=== PATIENT | female | born 1995 | race Caucasian/White ===

== ENCOUNTER → 2021-02-22 14:23 | Outpatient (CLI) | payer OTHER, SELFPAY ==
--- NOTE | 2021-02-22 14:25 | DI.US.S_ITS ---
PROCEDURE: US OB <= 14 WEEKS FETUS INDICATIONS: DATES OUTSIDE/PRIOR DATING DATA: Last menstrual period (LMP): 12/23/20. LMP-based estimated date of delivery (ROSA): 09/29/21 First dating scan (date and location): 02/22/21. Estimated date of delivery (ROSA) from first dating scan: 10/24/21. TECHNIQUE: Real-time scanning was performed of the fetus and maternal pelvic organs, with image documentation. Endovaginal scanning was also performed to better visualize the fetus and maternal ovaries. COMPARISON: None. FINDINGS: Embryo: A presumed intrauterine gestational sac is seen measuring 4 mm, 5 weeks 1 day however no pole is confirmed. A presumed perigestational hemorrhage measuring 1.4 x 0.3 x 0.8 cm. Heart rate: Not applicable Measurement variability in dating: +/- 4 weeks by LMP, +/- 7 days by mean sac diameter (use before 6 weeks gestation if crown-rump length not able to be measured), +/- 5 days by crown-rump length (up to 8 weeks 6 days gestation), +/- 7 days by crown-rump length (up to 13 weeks 6 days gestation). Maternal organs: Ovaries unremarkable except for a presumed left-sided corpus luteum . IMPRESSION: Presumed intrauterine gestational sac however no pole identified. Differential includes early IUP, missed spontaneous however cannot exclude ectopic at this time. Recommend continued correlation with serial beta HCG values, and repeat pelvic ultrasound in 1 week. Maegan-gestational hematoma. Dictated by: Ran Tracy M.D. on 02/22/2021 at 14:58 Approved by: Ran Tracy M.D. on 02/22/2021 at 15:01
== END ==
PROVIDERS: Referring Provider Family Medicine; Visit Provider Family Medicine
DX: Z36.87 Encounter for antenatal screening for uncertain dates (principal)
CPT/HCPCS: 76801; 76817

== ENCOUNTER → 2021-02-28 16:46 | Outpatient (CLI) | payer OTHER, SELFPAY ==
[2021-02-28 18:50] LABS: HCG Quantitative /Beta subunit 6048.1 mIU/mL
== END ==
PROVIDERS: Referring Provider Family Medicine; Visit Provider Family Medicine
DX: Z34.81 Encounter for supervision of other normal pregnancy, first trimester (principal)
CPT/HCPCS: 36415; 84702

== ENCOUNTER → 2021-03-02 16:10 | Outpatient (CLI) | payer OTHER, SELFPAY ==
[2021-03-02 17:05] LABS: HCG Quantitative /Beta subunit 9253.4 mIU/mL
== END ==
PROVIDERS: Referring Provider Family Medicine; Visit Provider Family Medicine
DX: Z34.81 Encounter for supervision of other normal pregnancy, first trimester (principal)
CPT/HCPCS: 36415; 84702

== ENCOUNTER → 2021-03-08 14:16 | Outpatient (CLI) | payer OTHER, SELFPAY ==
--- NOTE | 2021-03-08 14:19 | DI.US.S_ITS ---
PROCEDURE: US OB <= 14 WEEKS FETUS INDICATIONS: DATES OUTSIDE/PRIOR DATING DATA: Last menstrual period (LMP): 12/23/2020 LMP-based estimated date of delivery (ROSA): 09/29/2021. First dating scan (date and location): 03/17/2021. Estimated date of delivery (ROSA) from first dating scan: 10/30/2021. TECHNIQUE: Real-time scanning was performed of the fetus and maternal pelvic organs, with image documentation. Endovaginal scanning was also performed to better visualize the fetus and maternal ovaries. COMPARISON: [facility], OB <= 14 WEEKS FETUS, 02/22/2021, 14:32. FINDINGS: Embryo: [place]-rump length measures 6 mm corresponding to 6 weeks 2 days. Delete Heart rate: 124 beats per minute. Measurement variability in dating: +/- 4 weeks by LMP, +/- 7 days by mean sac diameter (use before 6 weeks gestation if crown-rump length not able to be measured), +/- 5 days by crown-rump length (up to 8 weeks 6 days gestation), +/- 7 days by crown-rump length (up to 13 weeks 6 days gestation). Maternal organs: Ovaries within normal limits . IMPRESSION: 6 week 2 day single living IUP. Dictated by: Derrell Juares Yani Interpreted: Tucker Helms MD on 03/08/2021 at 15:39 Transcribed by: CHLOE on 03/08/2021 at 15:41 Approved by: Tucker Helms M.D. on 03/08/2021 at 17:42
== END ==
PROVIDERS: PCP Family Medicine; Referring Provider Family Medicine; Visit Provider Family Medicine
DX: Z34.81 Encounter for supervision of other normal pregnancy, first trimester (principal); Z3A.01 Less than 8 weeks gestation of pregnancy
CPT/HCPCS: 76801; 76817

== ENCOUNTER → 2021-03-30 11:31 | Outpatient (CLI) | payer OTHER, SELFPAY ==
[2021-03-30 12:38] LABS: Add Manual Diff / Slide Review NO; Basophils Absolute Auto 0 /uL (0-100); Basophils Percent Auto 0.3 % (0-2); Eosinophils Absolute Auto 200 /uL (0-450); Eosinophils Percent Auto 2.6 % (2-4); Hematocrit 37.9 % (36-46); Hemoglobin 12.8 g/dL (12.0-16.0); Lymphocytes Absolute Auto 1700 /uL (1100-4500); Lymphocytes Percent Auto 19.5 % (25-40); Mean Corpuscular HGB Conc 33.8 % (30-36); Mean Corpuscular Hemoglobin 30.4 PG (26-34); Monocytes Absolute Auto 400 /uL (0-900); Monocytes Percent Auto 4.3 % (3-14); Neutrophils Absolute Auto 6500 /uL (1500-7000); Neutrophils Percent Auto 73.3 % (50-75); Platelet Count 172 X10^3/uL (150-400); Red Blood Cell Count 4.21 X10^6/uL (4.0-5.2); Red Cell Distribution Width 12.5 % (11.6-14.8); White Blood Cell Count 8.9 X10^3/uL (4.5-11.0)
[2021-03-30 13:56] LABS: Appearance Urine UA CLEAR; Bilirubin Urine UA NEGATIVE (NEGATIVE); Color Urine UA YELLOW; Glucose Urine UA NEGATIVE (Negative); Ketones Urine UA 1+ (NEGATIVE); Leukocyte Esterase Urine UA NEGATIVE (NEGATIVE); Nitrite Urine UA NEGATIVE (Negative); Occult Blood Urine UA NEGATIVE (Negative); Protein Urine UA NEGATIVE (Negative); Specific Gravity Urine UA 1.025 (1.000-1.035); Urobilinogen Urine UA 0.2 E.U./dL (0.2)
[2021-03-30 14:00] LABS: pH Urine UA 6.5 (4.5-8.0)
[2021-03-30 16:11] LABS: Urine N gonorrhoeae NOT DETECTED
[2021-03-30 16:12] LABS: Urine Chlamydia NOT DETECTED
[2021-03-31 08:43] LABS: RPR Screen Non Reactive (Non Reactive)
[2021-03-31 10:09] LABS: Varicella IgG Antibody 360 index (Immune >165)
[2021-04-03 15:09] LABS: Hepatitis B Surface Antigen NEGATIVE s/c (NEGATIVE)
[2021-04-03 15:32] LABS: HIV 1 & 2 Ab/Ag 4th Gen Combo NEGATIVE (NEGATIVE); Hep C Virus Ab w/Reflex Quant NEGATIVE s/c (NEGATIVE)
[2021-04-04 16:14] LABS: Rubella Antibody IgG 44.9 IU/mL (>15)
== END ==
PROVIDERS: PCP Family Medicine; Referring Provider Family Medicine; Visit Provider Family Medicine
DX: Z34.90 Encounter for supervision of normal pregnancy, unspecified, unspecified trimester (principal); Z3A.09 9 weeks gestation of pregnancy
CPT/HCPCS: 36415; 80055; 81003; 86787; 86803; 86850; 86900; 86901; 87086; 87389; 87491; 87591

== ENCOUNTER → 2021-06-05 09:11 | Outpatient (CLI) | payer OTHER, SELFPAY ==
--- NOTE | 2021-06-05 09:12 | DI.US.S_ITS ---
PROCEDURE: US OB >= 14 WEEKS FETUS INDICATIONS: ANATOMY OUTSIDE/PRIOR DATING DATA: Last menstrual period (LMP): December 23, 2020. LMP-based estimated date of delivery (ROSA): September 29, 2021 . First dating scan (date and location): March 08, 2021 ([facility]) . Estimated date of delivery (ROSA) from first dating scan: October 30, 2021 . TECHNIQUE: Real-time scanning was performed of the fetus, with image documentation and biometric measurements. Endovaginal scanning: Not performed COMPARISON: None. FINDINGS: General: A single living intrauterine gestation is present. Presentation: Variable. Placenta: Placental position is posterior , with evidence of complete placenta previa.. Amniotic fluid index: 12.4 cm, normal range is 5-24 cm. (largest pocket measured 3.9 cm) heart rate: 149 beats per minute. Maternal cervical canal: 0.2 cm long. Normal lower limit is 2.5 cm. There is minimal fluid identified in the cervical canal. biometrics: Biparietal diameter: 4.6 cm (19 weeks and 5 days) Head circumference: 17.0 cm (19 weeks and 4 days) Abdominal circumference: 15.0 cm (20 weeks and 1 day) Femur length: 3.0 cm (19 weeks and 1 day). Estimated gestational age from initial scan: 19 weeks and 0 days Composite gestational age from present scan: 19 weeks and 5 days Estimated weight and percentile: 307 [address] the fetus within the 84th percentile based on gestational age. Measurement variability for biometric dating: +/- 7 days from 14 weeks to 15 weeks 6 days gestation, +/- 10 days from 16 weeks to 21 weeks 6 days gestation, +/- 2 weeks from 22 weeks to 27 weeks 6 days gestation, +/- 3 weeks for 28 weeks gestation or later. weight reference: 4500 g or EFW >90/95% is considered macrosomia or large for gestational age. EFW <10% is small for gestational age. EFW 5% or less is considered intra-uterine growth restriction. Anatomic survey: Neuro: Ventricles are non-dilated at less than 10 mm. Cisterna magna is normal at 3-11 mm. Right choroid plexus not well visualized. Cerebellum is normal in size and morphology. Nuchal skin fold: Not well visualized. Face: Nose and lips, facial profile are normal. Spine: No evidence for spina bifida. Heart: The four-chamber view and ventricular outflow tracts are not well visualized. Diaphragm: Diaphragm is intact. Stomach: Left-sided stomach is present. Kidneys: No hydronephrosis. Normal is less than 5 mm in 2nd trimester, less than 7 mm in 3rd trimester. Cord: 3-vessel cord has orthotopic insertion. Bladder: Normal in size. Extremities: All 4 extremities identified. IMPRESSION: Single living intrauterine gestation with estimated sonographic gestational age of approximately 19 weeks and 5 days. Expected interval growth has occurred. Estimated weight of approximately 307 [address] which [address] the fetus at the 84th percentile based on gestational age. There appears to be complete placenta previa. Recommend continued close clinical surveillance with follow-up imaging as needed. Limited visualization of the right choroid plexus, nuchal fold, four-chamber heart, and ventricular outflow tracts. Follow-up imaging recommended. Otherwise, unremarkable anatomic screening survey. Dictated by: Guy Briscoe M.D. on 06/05/2021 at 11:11 Approved by: Guy Briscoe M.D. on 06/05/2021 at 11:23
== END ==
PROVIDERS: PCP Family Medicine; Referring Provider Family Medicine; Visit Provider Family Medicine
DX: Z36.89 Encounter for other specified antenatal screening (principal); Z3A.19 19 weeks gestation of pregnancy
CPT/HCPCS: 76811; 76817

== ENCOUNTER → 2021-06-27 15:51 | Outpatient (CLI) | payer OTHER, SELFPAY ==
--- NOTE | 2021-06-27 15:52 | DI.US.S_ITS ---
PROCEDURE: US OB FOLLOW UP INDICATIONS: REMAINDER OF ANAYOMY, CHECK PLACENTA PREVIA OUTSIDE/PRIOR DATING DATA: Last menstrual period (LMP): 12/23/2020 LMP-based estimated date of delivery (ROSA): 09/29/2021. First dating scan (date and location): 03/08/2021. Estimated date of delivery (ROSA) from first dating scan: 10/30/2021. The calculations are made using the ultrasound ROSA of 10/30/2021 TECHNIQUE: Real-time scanning was performed of the fetus, with image documentation and biometric measurements. Endovaginal scanning: No COMPARISON: [facility], US, OB >= 14 WEEKS FETUS, 06/05/2021, 9:15. FINDINGS: General: A single living intrauterine gestation is present. Presentation: Oblique. Placenta: Placental position is posterior , with low lying placenta with the inferior edge of the placenta extending to nearly the internal cervical os level. Amniotic fluid index: 12.4 cm, normal range is 5-24 cm. heart rate: 149 beats per minute. Maternal cervical canal: 4.2 cm long. biometrics: Biparietal diameter: 19 weeks 5 days Head circumference: 19 weeks 4 days Abdominal circumference: 20 weeks 1 day Femur length: 19 weeks 1 day Clinically estimated gestational age: 19 weeks Composite gestational age from present scan: 19 weeks 5 days Estimated weight and percentile: 307 g, 84th percentile Normal appearance of the choroid plexus and nuchal fold. The four-chamber heart and cardiac outflow tracts are again suboptimally visualized. IMPRESSION: 1. Single living IUP redemonstrated 2. Four-chamber heart and cardiac outflow tracts again not well visualized. 3. Low-lying placenta. Continued follow-up recommended. We strive to produce accurate, complete, and clear reports of imaging services. To assist us in improving patient care, this report was composed using standard report templates and voice recognition software. Therefore, it may contain abnormal punctuation, insertions and/or omissions. Occasional wrong-word or sound-alike substitutions may occur. Though we review the report and make efforts to correct it, we do recommend that the report be read carefully in proper context to recognize any text inaccuracies. Dictated by: Derrell WORLEY Interpreted: Enoch Montano MD on 06/27/2021 at 17:05 Transcribed by: JOHNNY on 06/27/2021 at 17:09 Approved by: Kevin Holloway M.D. on 07/02/2021 at 11:50
== END ==
PROVIDERS: PCP Family Medicine; Referring Provider Family Medicine; Visit Provider Family Medicine
DX: O44.00 Complete placenta previa NOS or without hemorrhage, unspecified trimester (principal); Z3A.19 19 weeks gestation of pregnancy
CPT/HCPCS: 76816; 76817

== ENCOUNTER 2021-07-17 18:41 | Emergency (ER) | payer OTHER, SELFPAY ==
[2021-07-17 18:46] VITALS: BP 118/56; PULSE 120; RESP 24; TEMP 38.9; O2SAT 97; BMI 41.6
[2021-07-17 19:23] VITALS: TEMP 38.8
[2021-07-17] MEDS: SODIUM CHLORIDE 0.9% 1,000 ML 1000 ML IV ×2 (19:23→20:31)
[2021-07-17] MEDS: ACETAMINOPHEN 325 MG TABLET 650 MG PO (19:23)
[2021-07-17 19:25] LABS: Add Manual Diff / Slide Review NO; Basophils Absolute Auto 0 /uL (0-100); Basophils Percent Auto 0.2 % (0-2); Eosinophils Absolute Auto 100 /uL (0-450); Eosinophils Percent Auto 0.9 % (2-4); Hemoglobin 12.2 g/dL (12.0-16.0); Lymphocytes Absolute Auto 300 /uL (1100-4500); Lymphocytes Percent Auto 3.3 % (25-40); Mean Corpuscular HGB Conc 33.9 % (30-36); Mean Corpuscular Hemoglobin 29.8 PG (26-34); Monocytes Absolute Auto 400 /uL (0-900); Monocytes Percent Auto 4.5 % (3-14); Neutrophils Absolute Auto 8500 /uL (1500-7000); Neutrophils Percent Auto 91.1 % (50-75); Platelet Count 132 X10^3/uL (150-400); Red Blood Cell Count 4.09 X10^6/uL (4.0-5.2); Red Cell Distribution Width 13.2 % (11.6-14.8); White Blood Cell Count 9.3 X10^3/uL (4.5-11.0)
[2021-07-17 19:37] LABS: Lactate (Lactic Acid) 1.2 mmol/L (0.7-2.1)
[2021-07-17 19:38] LABS: Alanine Aminotransferase 27 IU/L (<35); Albumin 4.3 g/dL (3.5-5.0); Albumin Globulin Ratio 1.3 (1.0-2.8); Alkaline Phosphatase 61 U/L (38-126); Aspartate Aminotransferase 63 IU/L (14-36); BUN Creatinine Ratio 12.5 (6-22); Bilirubin Total 0.3 mg/dL (0.2-1.3); Blood Urea Nitrogen 6 mg/dL (7-17); Calcium 9.7 mg/dL (8.4-10.2); Carbon Dioxide 24 mmol/L (22-32); Chloride 103 mmol/L (98-107); Estimated Glomerular Filt Rate > 60.0 mL/min (>60); Globulin 3.4 g/dL (1.7-4.1); Glucose 98 mg/dL (70-100); HEMOLYSIS < 15 (0-50); Lipase 44 U/L (23-300); Potassium 3.6 mmol/L (3.4-5.1); Sodium 134 mmol/L (137-145); Total Protein 7.7 g/dL (6.3-8.2)
--- NOTE | 2021-07-17 19:42 | ED.FEVER ---
HPI - Fever General Chief Complaint: Fever Stated Complaint: 25 WKS FEVER 102 CHEST PAIN Time Seen by Provider: 07/17/21 19:07 Source: patient Mode of arrival: Ambulatory History of Present Illness HPI Narrative: The patient is a 25-year-old female currently 25 weeks with placenta previa presenting with fever and body aches that started today. She states that she has mild sore throat generalized body aches. No painful or frequent urination she has absolutely no abdominal pain no vaginal bleeding. She generally does not feel well. sHe has no back pain. She is vaccinated for COVID. Related Data Home Medications Medication Instructions Recorded Confirmed docusate sodium 100 mg capsule 100 mg PO DAILY 03/20/21 03/20/21 prenat.vits,lisa,ucg-vdub-guryx 1 tab PO DAILY 03/20/21 03/20/21 Previous Rx's Medication Instructions Recorded sertraline 50 mg tablet 50 mg PO DAILY #30 tab 03/30/21 Allergies Allergy/AdvReac Type Severity Reaction Status Date / Time lavender (Lavandula AdvReac Intermediate Hives Verified 07/17/21 18:51 angustifolia) No Known Allergies Allergy Uncoded 03/20/21 07:40 Review of Systems Review of Systems Narrative: GENERAL: See HPI HEENT: Denies sinus pain, ear pain, sore throat, difficulty swallowing, neck pain RESPIRATORY: Denies dyspnea, cough, wheezing, hemoptysis, sputum. CARDIOVASCULAR: Denies chest pain, palpitations, orthopnea, edema GASTROINTESTINAL: Denies nausea, vomiting, abdominal pain, diarrhea, constipation, melena. : Denies dysuria, frequency, incontinence, hematuria, urinary retention, flank pain. MUSCULOSKELETAL: Denies weakness, joint pain, or bony pain SKIN: No rash, no erythema, no pruritus NEUROLOGIC: Denies weakness, dizziness, headache, numbness, change in speech, confusion PSYCHIATRIC: No concerning psychosocial issues. 12 point review of systems is negative except for those stated above and HPI Patient History Medical History Anxiety Depression Finger fracture Obesity (spontaneous vaginal delivery) (~02/05/17) (spontaneous vaginal delivery) (~03/06/19) Family History Father History of prediabetes Altered cardiac tissue perfusion Mother Anemia Hemorrhoids Grandfather Family estrangement Grandmother Cancer Colon cancer Grandfather Congestive heart failure Arthritis Joint pain Grandmother Hypertension Brother Hiatal hernia Brother No problems noted. 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 ) current occupational exposures/hazards: Yes flor/uatsdin: Tenriism special flor needs: No Smoking Status: Never smoker second hand exposure: No alcohol intake: former (Pre- : rare social/on occasion ) substance use type: does not use Smoking Status: Never smoker alcohol intake frequency: 0-2 drinks per day Substance Use Type: does not use Exam Initial Vital Signs Initial Vital Signs: Vital Signs Temperature 102.0 F H 07/17/21 18:46 Pulse Rate 120 H 07/17/21 18:46 Respiratory Rate 24 07/17/21 18:46 Blood Pressure 118/56 L 07/17/21 18:46 Pulse Oximetry 97 07/17/21 18:46 GENERAL: Alert 25-year-old female appears to not feel well in no acute distress. HEENT: Head atraumatic,EOMI, pupils reactive, face symmetric, moist mucous membranes CARDIOVASCULAR: Regular rate and rhythm without murmurs, rubs or gallops. RESPIRATORY: Breath sounds equal bilaterally, no wheezes rales or rhonchi. ABDOMEN: Soft, nontender. Gravid. Normoactive bowel sounds all 4 quadrants. No guarding or rebound. : No CVA tenderness EXTREMITIES: Normal range of motion, no clubbing or edema. Neurovascularly intact NEUROLOGICAL: Alert and oriented x4.Normal gait and speech. SKIN: Warm, dry, no laceration, no petechiae, no rashes or lesions. Course Orders Ordered: ED Orders 07/17/21 18:53 COVID19 - ADMIT (AGENT SPA DESK swab/PCR) Stat Flu test [Influenza A & B (PCR)] Stat 07/17/21 18:59 RT Consult Eval and Treat NOW 07/17/21 19:11 Complete Blood Count AUTO DIFF Stat Comprehensive Metabolic Panel Stat Lactate (Lactic Acid) Stat Lipase Stat Procalcitonin Stat 07/17/21 19:50 Blood Culture Stat Discontinued Medications Acetaminophen (Acetaminophen 325 Mg Tablet) 650 mg PO NOW ONE Stop: 07/17/21 19:00 Last Admin: 07/17/21 19:23 Dose: 650 mg Documented by: MARICRUZ Sodium Chloride (Normal Saline 0.9%) 1,000 mls @ 1,000 mls/hr IV BOLUS ONE Stop: 07/17/21 19:58 Last Infusion: 07/17/21 20:30 Dose: 0 mls/hr Documented by: Admin: 07/17/21 19:23 Dose: 1,000 mls/hr Documented by: MARICRUZ Sodium Chloride (Normal Saline 0.9%) 1,000 mls @ 1,000 mls/hr IV BOLUS ONE Stop: 07/17/21 21:14 Last Infusion: 07/17/21 22:00 Dose: 0 mls/hr Documented by: Admin: 07/17/21 20:31 Dose: 1,000 mls/hr Documented by: RICHY Vital Signs Vital signs: Vital Signs - 8 hr 07/17/21 19:23 07/17/21 21:24 Temperature 102 F H 99.4 F Pulse Rate 110 H Respiratory Rate 20 Blood Pressure 124/59 L Pulse Oximetry 96 MDM - Fever Lab Data Result diagrams: 07/17/21 19:11 07/17/21 19:11 Labs: Lab Results 07/17/21 07/17/21 07/17/21 Range/Units 18:53 18:53 19:11 WBC 9.3 (4.5-11.0) X10^3/uL RBC 4.09 (4.0-5.2) X10^6/uL Hgb 12.2 (12.0-16.0) g/dL Hct 36.0 (36-46) % MCV 88.0 (80-100) fL MCH 29.8 (26-34) PG MCHC 33.9 (30-36) % RDW 13.2 (11.6-14.8) % Plt Count 132 L (150-400) X10^3/uL Neut % (Auto) 91.1 H (50-75) % Lymph % (Auto) 3.3 L (25-40) % [place] % (Auto) 4.5 (3-14) % Eos % (Auto) 0.9 L (2-4) % Baso % (Auto) 0.2 (0-2) % Neut # (Auto) 8500 H (2894-2476) /uL Lymph # (Auto) 300 L (6768-0168) /uL [place] # (Auto) 400 (0-900) /uL Eos # (Auto) 100 (0-450) /uL Baso # (Auto) 0 (0-100) /uL Sodium (137-145) mmol/L Potassium (3.4-5.1) mmol/L Chloride (98-107) mmol/L Carbon Dioxide (22-32) mmol/L BUN (7-17) mg/dL Creatinine (0.52-1.04) mg/dL Estimated GFR (>60) mL/min BUN/Creatinine Ratio (6-22) Glucose (70-100) mg/dL Lactate (0.7-2.1) mmol/L Calcium (8.4-10.2) mg/dL Total Bilirubin (0.2-1.3) mg/dL AST (14-36) IU/L ALT (<35) IU/L Alkaline Phosphatase (38-126) U/L Total Protein (6.3-8.2) g/dL Albumin (3.5-5.0) g/dL Globulin (1.7-4.1) g/dL Albumin/Globulin Ratio (1.0-2.8) Lipase (23-300) U/L Procalcitonin (<0.5) ng/mL SARS-CoV-2 (PCR) Positive H (Negative) Influenza A (RT-PCR) Flu a negative (NEGATIVE) Influenza B (RT-PCR) Flu b negative (NEGATIVE) 07/17/21 07/17/21 Range/Units 19:11 19:11 WBC (4.5-11.0) X10^3/uL RBC (4.0-5.2) X10^6/uL Hgb (12.0-16.0) g/dL Hct (36-46) % MCV (80-100) fL MCH (26-34) PG MCHC (30-36) % RDW (11.6-14.8) % Plt Count (150-400) X10^3/uL Neut % (Auto) (50-75) % Lymph % (Auto) (25-40) % [place] % (Auto) (3-14) % Eos % (Auto) (2-4) % Baso % (Auto) (0-2) % Neut # (Auto) (9949-0056) /uL Lymph # (Auto) (8756-5322) /uL [place] # (Auto) (0-900) /uL Eos # (Auto) (0-450) /uL Baso # (Auto) (0-100) /uL Sodium 134 L (137-145) mmol/L Potassium 3.6 (3.4-5.1) mmol/L Chloride 103 (98-107) mmol/L Carbon Dioxide 24 (22-32) mmol/L BUN 6 L (7-17) mg/dL Creatinine 0.48 L (0.52-1.04) mg/dL Estimated GFR > 60.0 (>60) mL/min BUN/Creatinine Ratio 12.5 (6-22) Glucose 98 (70-100) mg/dL Lactate 1.2 (0.7-2.1) mmol/L Calcium 9.7 (8.4-10.2) mg/dL Total Bilirubin 0.3 (0.2-1.3) mg/dL AST 63 H (14-36) IU/L ALT 27 (<35) IU/L Alkaline Phosphatase 61 (38-126) U/L Total Protein 7.7 (6.3-8.2) g/dL Albumin 4.3 (3.5-5.0) g/dL Globulin 3.4 (1.7-4.1) g/dL Albumin/Globulin Ratio 1.3 (1.0-2.8) Lipase 44 (23-300) U/L Procalcitonin 0.08 (<0.5) ng/mL SARS-CoV-2 (PCR) (Negative) Influenza A (RT-PCR) (NEGATIVE) Influenza B (RT-PCR) (NEGATIVE) Urine Dip Bedside Urine Glucose Negative Bedside Urine Bilirubin - Negative Bedside Urine Ketone - Negative Urine Specific [place] 1.015 Bedside Urine Occult Blood - Negative Bedside Urine pH 8 Bedside Urine Protein +/- 15 Bedside Urine Urobilinogen - Negative Bedside Urine Nitrite - Negative Bedside Urine Leukocytes - Negative Esterase MDM Narrative Medical decision making narrative: The patient is a 25-year-old female 25 weeks febrile tachycardic. She is given Tylenol and IV fluids. She is found to be COVID positive. She is feeling better after IV fluids. She has no abdominal pain or vaginal bleeding is unlikely to be any sort of complication with placenta previa. Discussed with her home care and when to return to the emergency department. Discharge Plan Departure Patient Disposition: Home Clinical Impression: COVID-19 affecting in second trimester Instructions: DI for COVID-19 (Suspected or Confirmed ) Activity Restrictions/Additional Instructions: *You have been diagnosed with COVID-19 * if you have not yet been vaccinated is still recommended and encouraged that you do so once your infection has passed *Follow up with your primary provider in 2-3 days or call [phone] AT HOME: -Monitor oxygen with pulse oximeter. If less than 90% for more than 1 hour please return to emergency department -I recommend lying on stomach for side rather than back, it has been proven to increase oxygen levels -Wash hands frequently. -Stay isolated at home please follow the isolation instructions below. -Increase fluid intake. -you may take Tylenol as directed if needed for pain or fever EMERGENCY warning signs for COVID-19: - Difficulty breathing or shortness of breath, oxygen less than 90% - Persistent pain or pressure in the chest - New confusion or inability to arouse - Bluish lips or face CDC Guidelines for home isolation: - Stay away from others - Limit contact with pets and animals: If you must care for a pet, wash your hands before and after interacting with them - Wear a mask while in public all places - Cover your mouth and nose with a tissue when you cough or sneeze. Dispose of tissues in a lined trash can and wash your hands immediately with soap and water for at least 20 seconds. If soap and water are not available, clean hands with alcohol-based hand sole inker that contains at least 60% alcohol. - Clean your hands often with soap and water for at least 20 seconds - Avoid touching your eyes, nose and mouth with unwashed hands - Do not share dishes, drinking glasses, cups, eating utensils, towels, or bedding with other people in your home. After using these items, wash them thoroughly with soap and water or put in the financial administrative assistant. - Clean high-touch surfaces in your isolation area (?sick room? and bathroom) every day; let a caregiver clean and disinfect high-touch surfaces in other areas of the home. Clean the area or item with soap and water or another detergent if it is dirty. Then, use a household disinfectant. Prescriptions: No Action sertraline 50 mg tablet 50 mg PO DAILY Qty: 30 1RF prenat.vits,lisa,utj-taog-jopup Tablet 1 tab PO DAILY 0RF docusate sodium 100 mg capsule 100 mg PO DAILY 0RF Referrals: Celina Frausto DO [Primary Care Provider] -
[2021-07-17 19:55] LABS: Procalcitonin 0.08 ng/mL (<0.5)
[2021-07-17 20:20] LABS: Influenza A - CEPHEID Flu A NEGATIVE (NEGATIVE); Influenza B - CEPHEID Flu B NEGATIVE (NEGATIVE)
[2021-07-17 20:21] LABS: COVID19 - ADMIT (NP swab/PCR) POSITIVE (Negative)
[2021-07-17 21:24] VITALS: BP 124/59; PULSE 110; RESP 20; TEMP 37.4; O2SAT 96
== END 2021-07-17 22:09 | disposition home or self-care (01) ==
PROVIDERS: Emergency Provider Emergency Medicine; PCP Family Medicine
DX: O98.512 Other viral diseases complicating pregnancy, second trimester (principal); U07.1 COVID-19; Z3A.25 25 weeks gestation of pregnancy
CPT/HCPCS: 36415; 80053; 81003; 83605; 83690; 84145; 85025; 87040; 87502; 87635; 96360; 99283; 99284; C9803

== ENCOUNTER → 2021-08-06 09:32 | Outpatient (CLI) | payer OTHER, SELFPAY ==
--- NOTE | 2021-08-06 09:32 | DI.US.S_ITS ---
PROCEDURE: US OB FOLLOW UP INDICATIONS: PLACENTAL COMPLETE PREVIA. FOLLOW UP HEART. OUTSIDE/PRIOR DATING DATA: Last menstrual period (LMP): 12/23/2020. LMP-based estimated date of delivery (ROSA): 09/29/2021. First dating scan (date and location): 03/08/2021 Estimated date of delivery (ROSA) from first dating scan: 10/30/2021. TECHNIQUE: Real-time scanning was performed of the fetus, with image documentation. Endovaginal scanning: Yes COMPARISON: [facility], OB FOLLOW UP, 06/27/2021, 16:11. FINDINGS: A single living intrauterine gestation is present. Presentation: Vertex. Placenta: Placental position is low lying, without previa. Placental edge is 10 mm from internal cervical os. Amniotic fluid index: 12.4 cm, normal range is 5-24 cm. heart rate: 149 beats per minute. Maternal cervical canal: 4.2 cm long. Normal lower limit is 2.5 cm. Estimated gestational age from initial scan: 27 weeks 6 days Survey of Anatomy currently includes normal four-chamber heart view., left and right ventricular outflow tracts, chest/diaphragm, stomach/abdomen, bilateral renal regions, and urinary bladder/pelvis. IMPRESSION: 1. Single living intrauterine gestation. 2. No evidence of placenta previa. 3. Limited normal survey of anatomy as above. Dictated by: Negrito Feliz M.D. on 08/06/2021 at 13:10 Approved by: Negrito Feliz M.D. on 08/06/2021 at 13:15
== END ==
PROVIDERS: PCP Family Medicine; Referring Provider Family Medicine; Visit Provider Family Medicine
DX: Z36.2 Encounter for other antenatal screening follow-up (principal); O44.02 Complete placenta previa NOS or without hemorrhage, second trimester; Z3A.27 27 weeks gestation of pregnancy
CPT/HCPCS: 76816; 76817

== ENCOUNTER → 2021-08-09 15:37 | Outpatient (CLI) | payer OTHER, MEDICAID, SELFPAY ==
[2021-08-09 17:42] LABS: Hematocrit 31.5 % (36-46); Hemoglobin 10.5 g/dL (12.0-16.0)
[2021-08-09 17:52] LABS: GTT (PREG) 1 Hour PP 50gm Dose 115 mg/dL (76-139)
== END ==
PROVIDERS: PCP Family Medicine; Referring Provider Family Medicine; Visit Provider Family Medicine
DX: Z34.92 Encounter for supervision of normal pregnancy, unspecified, second trimester (principal); Z3A.26 26 weeks gestation of pregnancy
CPT/HCPCS: 36415; 82950; 85014; 85018

== ENCOUNTER → 2021-08-31 12:06 | Outpatient (CLI) | payer OTHER, MEDICAID, SELFPAY ==
--- NOTE | 2021-08-31 12:09 | DI.US.S_ITS ---
PROCEDURE: US OB LIMITED INDICATIONS: check placenta location, growth OUTSIDE/PRIOR DATING DATA: Last menstrual period (LMP): 12/23/2020. LMP-based estimated date of delivery (ROSA): 09/29/2021 First dating scan (date and location): 03/08/2021 Estimated date of delivery (ROSA) from first dating scan: 10/30/2021 TECHNIQUE: Real-time scanning was performed of the fetus, with image documentation and biometric measurements. Endovaginal scanning: None COMPARISON: None. FINDINGS: General: A single living intrauterine gestation is present. Presentation: Cephalic. Placenta: Placental position is posterior , without previa. Amniotic fluid index: 16.3 cm, normal range is 5-24 cm. heart rate: 155 beats per minute. Maternal cervical canal: 4 cm long. Normal lower limit is 2.5 cm. biometrics: Biparietal diameter: 8.5 cm, 34 week 0 day Head circumference: 30.3 cm, 33 week 5 day Abdominal circumference: 27.5 cm, 31 week 4 day Femur length: 6 cm, 31 week 2 day Clinically estimated gestational age: 31 week 3 day Composite gestational age from present scan: 32 week 5 day Estimated weight and percentile: 1861 g, 54th percentile Other: Not applicable. IMPRESSION: Single live intrauterine consistent with 32 week 5 day gestation by current ultrasound Approved by: Pete Nicole M.D. on 08/31/2021 at 13:10
== END ==
PROVIDERS: PCP Family Medicine; Referring Provider Family Medicine; Visit Provider Family Medicine
DX: Z36.89 Encounter for other specified antenatal screening (principal); Z3A.32 32 weeks gestation of pregnancy
CPT/HCPCS: 76815

== ENCOUNTER 2021-10-01 14:48 | Outpatient (CLI) | payer OTHER, MEDICAID, SELFPAY ==
--- NOTE | 2021-10-01 15:30 | P.TNLD_ITS ---
Visit Information Visit Information Date of evaluation: 10/01/21 Primary OB Provider: Celina Frausto Reason for Evaluation: Yes non-stress test non-stress test reason: hypertension/pre-eclampsia Comments/Additional reasons for admission: 25-year-old at 35 weeks and 6 days with concern for elevated blood pressures at home. She has also been having some edema. Denies headaches, vision changes or right upper quadrant pain. Denies contractions, leaking or bleeding and reports good movement. Vital Signs Vital Signs: Serial blood pressuress 130s/60s pulse 100 PFSH Medical History Anxiety Depression Finger fracture Obesity (spontaneous vaginal delivery) (~02/05/17) (spontaneous vaginal delivery) (~03/06/19) Family History Father History of prediabetes Altered cardiac tissue perfusion Mother Anemia Hemorrhoids Grandfather Family estrangement Grandmother Cancer Colon cancer Grandfather Congestive heart failure Arthritis Joint pain Grandmother Hypertension Brother Hiatal hernia Brother No problems noted. 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[employer] ) current occupational exposures/hazards: Yes flor/confucianism: Tenriism special flor needs: No Smoking Status: Never smoker second hand exposure: No alcohol intake: former (Pre- : rare social/on occasion ) substance use type: does not use Evaluation Evaluation Baseline heart rate: 140 Variability: Moderate (11-25) monitor accelerations: Present Monitor Decelerations: Absent Category of Tracing: Reactive Diagnosis, Plan/Disposition Final Diagnosis (1) 35 weeks gestation of : Status: Acute Plan/Disposition Plan: 25-year-old at 35 weeks and 6 days gestation with concern for hypertension at home. All plan pressures in the center were within normal limits and she is without symptoms of preeclampsia. NST reactive. Follow-up as scheduled in clinic this week or sooner if needed. OB Disposition: home
== END 2021-10-01 15:35 | disposition home or self-care (01) ==
LOC: OB 10-03 16:38
PROVIDERS: PCP Internal Medicine; Referring Provider Family Medicine; Visit Provider Family Medicine
DX: O26.893 Other specified pregnancy related conditions, third trimester (principal); R03.0 Elevated blood-pressure reading, without diagnosis of hypertension; Z3A.35 35 weeks gestation of pregnancy
CPT/HCPCS: 59025; G0378; G0379

== ENCOUNTER → 2021-10-09 13:30 | Outpatient (CLI) | payer OTHER, MEDICAID, SELFPAY ==
[2021-10-10 12:40] LABS: Strep Grp B PCR POS for Grp B Strep
== END ==
PROVIDERS: PCP Internal Medicine; Visit Provider Family Medicine
DX: Z34.93 Encounter for supervision of normal pregnancy, unspecified, third trimester (principal); Z3A.37 37 weeks gestation of pregnancy
CPT/HCPCS: 87653

== ENCOUNTER 2021-10-25 13:05 | Inpatient (IN) | payer OTHER, MEDICAID, SELFPAY ==
--- NOTE | 2021-10-25 13:11 | P.HPOB_ITS ---
OB HPI Date/Time Date of admission: 10/25/21 Date Patient Seen: 10/25/21 Time Patient Seen: 13:15 History of Present Condition Chief complaint: induction ROSA Calculator Estimated Delivery Date Method Current WG Current Estimate 10/30/21 Ultrasound #1 39w 2d Other Estimates 09/29/21 LMP (Certain) 43w 5d Estimated Gestational Age (weeks): 39.2 : 3 Para: 2 Narrative: 26-year-old at 39 weeks and 2 days gestation presenting for induction due to history of rapid labor, distance from the hospital in GBS positivity. was complicated by placenta previa initially which resolved by 32 weeks. She also had a mild case of COVID despite vaccination at the end of the second trimester without complications. She took sertraline throughout her for anxiety. care: good care, initiated at week # (9), number of visits (10) and pounds weight gain (46) Dating criteria OB: based on 1st trimester US only Ultrasounds: abnormal US findings (Placenta previa on 20 week ultrasound, resolved by 32 weeks) Obstetrical complications: none Medical complications OB: none Indications Indication for induction OB: other (Distance from hospital, GBS positive, history of rapid labor) Preadmission Labs Last OB Lab Results: Blood Type O Positive 10/25/21 14:30 10/25/21 Antibody Screen Negative 10/25/21 14:30 10/25/21 Hematocrit 34.5 % (36-46) L 10/25/21 14:30 10/25/21 Hemoglobin 11.9 g/dL (12.0-16.0) L 10/25/21 14:30 10/25/21 Hepatitis B Surface Antigen Negative s/c (NEGATIVE) 03/30/21 12:07 03/30/21 Hepatitis C Antibody Negative s/c (NEGATIVE) 03/30/21 12:07 03/30/21 Rubella Antibody 44.9 IU/mL (>15) 03/30/21 12:07 03/30/21 Varicella-Zoster IgG Antibody 360 index (Immune >165) 03/30/21 12:07 03/30/21 Glucose 1 Hour 115 mg/dL (76-139) 08/09/21 16:51 08/09/21 Group B Streptococcus (PCR) Pos for grp b strep H 10/09/21 13:30 10/09/21 -: Urine: negative External Labs -: Urine: negative Prior (ies) Past Pregnancies Del. Date GA/Weeks Labor Lgth Wt Sex Route Outcome Anesthesia Place Delv Breastfeed Preg Comp Name 02/05/17 39.3 15 8 lb 9 oz Male vaginal live - full term ep idural [place] 1 month none [place] 03/06/19 35.3 5 7 lb Female vaginal live - epidural [place] 2 months none [place] Delivery Date: 02/05/17 Last Updated by: Kelly Ferreira R.N. *Jaundice : 5 day stay for Rx. *Struggled with PPD - usual symptoms but worse. Meds changed and support. Delivery Date: 03/06/19 Last Updated by: Kelly Ferreira R.N. *Jaundiced : NICU X 7 days. *Patient reports that she bled badly PP and was give oral and rectal meds. *PPD again. Evaluation Evaluation Baseline heart rate: 140 Variability: Moderate (11-25) monitor accelerations: Present Monitor Decelerations: Absent Contraction Frequency (minutes): 4 Uterine Contraction Intensity: Mild Category of Tracing: Reactive Status: Category l Dilation (cm): 4 Effacement (%): 50 Dilation: 3-4 cm Effacement: 40-50% station: -2 Position of cervix: mid Consistency: soft [place]ham score: 7 PFSH Medical History Anxiety Depression Finger fracture Obesity (spontaneous vaginal delivery) (~02/05/17) (spontaneous vaginal delivery) (~03/06/19) Family History Father History of prediabetes Altered cardiac tissue perfusion Mother Anemia Hemorrhoids Grandfather Family estrangement Grandmother Cancer Colon cancer Grandfather Congestive heart failure Arthritis Joint pain Grandmother Hypertension Brother Hiatal hernia Brother No problems noted. 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 ) current occupational exposures/hazards: Yes flor/yazidi: Scientology special flor needs: No Smoking Status: Never smoker second hand exposure: No alcohol intake: former (Pre- : rare social/on occasion ) substance use type: does not use Meds Home Medications and Allergies Home Medications Medication Instructions Recorded Confirmed Type docusate sodium 100 mg capsule 100 mg PO DAILY 03/20/21 09/07/21 History prenat.vits,lisa,qhe-lima-sblla 1 tab PO DAILY 03/20/21 09/07/21 History sertraline 50 mg tablet 50 mg PO DAILY #30 tab 03/30/21 09/07/21 Rx Double Electric Breast Pump and #1 ea 08/30/21 09/07/21 Rx supplies Allergies Allergy/AdvReac Type Severity Reaction Status Date / Time lavender (Lavandula AdvReac Intermediate Hives Verified 07/17/21 18:51 angustifolia) No Known Allergies Allergy Uncoded 03/20/21 07:40 OB Exam Narrative Exam Narrative: Blood pressure 125/69 heart rate 95 HENMT Head: normal to inspection Mouth: oral mucosae normal Eyes General: appearance normal, both eyes and all related structures Resp Effort & Inspection: normal respiratory effort Auscultation: clear to auscultation bilaterally Cardio Rate: regular rate Rhythm: regular rhythm Heart Sounds: S1 normal and S2 normal Extremities Lower extremity: Yes normal to inspection Presentation: vertex Estimated Weight (lbs): 8 Objective Labs Result Diagrams: 10/25/21 14:30 Assessment and Plan Assessment and Plan Assessment and Plan narrative: 26-year-old at 39 weeks and 2 days here for induction due to distance from hospital, GBS positivity and history of fast labor. Plan Pitocin per protocol Penicillin for GBS prophylaxis AROM after adequate antibiotics Epidural upon request Anticipate
[2021-10-25 13:54] LABS: Add Manual Diff / Slide Review NO; Basophils Absolute Auto 100 /uL (0-100); Basophils Percent Auto 0.8 % (0-2); Eosinophils Absolute Auto 200 /uL (0-450); Eosinophils Percent Auto 2.2 % (2-4); Hematocrit 34.5 % (36-46); Hemoglobin 11.9 g/dL (12.0-16.0); Lymphocytes Absolute Auto 1400 /uL (1100-4500); Lymphocytes Percent Auto 12.5 % (25-40); Mean Corpuscular HGB Conc 34.5 % (30-36); Mean Corpuscular Hemoglobin 30.1 PG (26-34); Mean Corpuscular Volume 87.4 fL (80-100); Monocytes Absolute Auto 600 /uL (0-900); Monocytes Percent Auto 5.5 % (3-14); Neutrophils Absolute Auto 8900 /uL (1500-7000); Platelet Count 147 X10^3/uL (150-400); Red Blood Cell Count 3.95 X10^6/uL (4.0-5.2); White Blood Cell Count 11.3 X10^3/uL (4.5-11.0)
[2021-10-25] MEDS: PENICILLIN G POTASSIUM 5,000,000 UNIT in DEXTROSE 5% IN WATER 250 ML IV (13:59)
[2021-10-25] MEDS: LACTATED RINGERS 1,000 ML 100 ML IV (14:00)
[2021-10-25 14:09] LABS: COVID19 -Nasal RAPID Negative (Negative)
[2021-10-25] MEDS: OXYTOCIN PREMIX 30 UNIT/500 ML PLAST..BAG IV (14:26)
[2021-10-25] MEDS: PENICILLIN G POTASSIUM 3,000,000 UNIT/50 ML FROZ.PIGGY 100 UNIT IV (17:42)
--- NOTE | 2021-10-25 18:22 | PM.OBPNLAB ---
Date/Time Date Patient Seen: 10/25/21 Time Patient Seen: 18:15 Pain Control Pain control: tolerating well Pelvic Exam Dilation (cm): 6 Effacement (%): 75 station: -2 Amniotic membrane status: Ruptured (AROM clear fluid) Contractions Pitocin rate (mU/min): 16 Contraction frequency (min): 2 Contraction intensity: Mild Status status: Category l Heart Rate Baseline: 140 Monitor Accelerations: Present Monitor Decelerations: Absent Monitor Variability: Moderate Assessment and Plan Assessment: active labor Plan: continuous present management Comments: 26 year old at 39+2 s/p AROM with clear fluid. She has now completed 2 doses of PCN for GBS prophylasix. Epidural upon request. Anticipate .
[2021-10-25] MEDS: ONDANSETRON 4 MG/2 ML INJ IV (19:45)
--- NOTE | 2021-10-25 21:29 | PM.OBPRVD ---
Labor & Delivery Delivery date: 10/25/21 Induction method: per pitocin protocol Delivery augmentation: rupture of membranes Delivery monitor: external FHT Route of delivery: L&D Laceration Description: None Estimated blood loss (mL): 300 Anesthesia Type: Epidural Narrative: BRIEF HISTORY: Patient is a 26-year-old at 39+2 weeks who gave on 10/25/21 at 2117. ROSA: 10/30/21 Hospital problems: 39 weeks of Spontaneous vaginal delivery STAGE I: Labor Patient came in for elective induction due to GBS positivity, distance from hospital and history of rapid labor. She received Pitocin per protocol and progressed well after artificial rupture of membranes with clear fluid. She went on to receive an epidural with excellent pain control. She was complete at 2105. heart tones were category 1 primarily throughout stage I and occasionally category 2 with mild variable non recurrent decelerations. Stage I duration 7 hours and 58 minutes. STAGE II: Delivery Patient was complete and pushed over four contractions to deliver a vigorous female at 9:17 p.m.. was vertex and TAMIA. She was immediately placed on mother's abdomen. Cord was clamped and cut after 1 minute delay. Apgars were 9 and 9. No resuscitation of the required. Stage II duration 12 minutes. STAGE III: Placenta/Cord Placenta delivered at 9:21 p.m. after gentle traction on cord. Placenta appeared intact with a three-vessel cord. Pitocin bolus given after delivery of placenta. There were no lacerations. Fundus was firm below umbilicus after delivery. Stage III duration 4 minutes. EBL: 300 mL. Needle and sponge counts were correct. The vagina was inspected and no items were left in situ. Patient was doing well with Shaw, her and at bedside. [place] Baby 1: Infant gender: Female Presentation: vertex Position: Right Occiput Anterior Placenta delivery description: Spontaneous Cord Vessel Description: 3 Vessels score (1 min): 9 score (5 min): 9 weight: 8 lb 6.429 oz Plan for aftercare: Routine care
[2021-10-25] MEDS: IBUPROFEN 600 MG TABLET PO (23:41)
[2021-10-25] MEDS: ACETAMINOPHEN 325 MG TABLET 650 MG PO (23:41)
[2021-10-26] MEDS: IBUPROFEN 600 MG TABLET PO ×2 (05:30→12:42)
[2021-10-26] MEDS: ACETAMINOPHEN 325 MG TABLET 650 MG PO ×3 (05:30→21:21)
--- NOTE | 2021-10-26 08:20 | P.PNOB_ITS ---
Subjective - OB Subjective Patient comments: no complaints, pain well controlled and tolerating diet baby status: doing well and nursing well feeding status: exclusively breast feeding Date Patient Seen: 10/26/21 Time Patient Seen: 08:00 Interval history: Denies complaints this morning. She is ambulating, voiding and tolerating a diet. Vaginal bleeding as expected. Pain controlled with Tylenol and ibuprofen. Exam Vital Signs (past 8 hours): Temperature 97.9? blood pressure 112/77 heart rate 78 respirations 16 Narrative Exam Narrative: General: Awake and alert, no acute distress. HEENT: NCAT, EOMI, moist oral mucosa CV: Regular rate and rhythm, no murmurs, rubs or gallops Lungs: CTAB, no wheezes, rales, or rhonchi Abdomen: Soft, nontender; bowel tones active; uterus firm 1 cm below umbilicus Extremities: Warm, no edema Objective Labs Result Diagrams: 10/25/21 14:30 Labs: Laboratory Results - last 24 hr 10/25/21 10/25/21 10/25/21 14:30 14:30 14:30 WBC 11.3 H RBC 3.95 L Hgb 11.9 L Hct 34.5 L MCV 87.4 MCH 30.1 MCHC 34.5 RDW 15.0 H Plt Count 147 L Neut % (Auto) 79.0 H Lymph % (Auto) 12.5 L [place] % (Auto) 5.5 Eos % (Auto) 2.2 Baso % (Auto) 0.8 Neut # (Auto) 8900 H Lymph # (Auto) 1400 [place] # (Auto) 600 Eos # (Auto) 200 Baso # (Auto) 100 SARS-CoV-2 (PCR) Negative Blood Type O Positive Antibody Screen Negative Assessment & Plan Assessment and Plan (1) Spontaneous vaginal delivery: Status: Acute (2) 39 weeks gestation of : Status: Acute Plan day: 1 plan OB: routine care Comments: 26-year-old G3 now P3 after uncomplicated spontaneous vaginal delivery last night. Continue care. Anticipate discharge home tomorrow. Time Spent With Patient Time: Total time spent is greater than 50% in coordination of care (as documented) at patient's floor/unit and/or counseling patient: Time with patient: less than 15 minutes
[2021-10-26] MEDS: DOCUSATE 100 MG CAPSULE PO (09:02)
[2021-10-26] MEDS: PRENATAL VIT,CALC/IRON/FOLIC 1 TABLET 1 TAB PO (09:02)
[2021-10-26] MEDS: LANOLIN OINT 7 GM 1 APPLIC TOP (09:17)
[2021-10-26 12:42] VITALS: TEMP 36.7
[2021-10-26 12:44] VITALS: TEMP 36.7
[2021-10-27] MEDS: ACETAMINOPHEN 325 MG TABLET 650 MG PO (07:13)
[2021-10-27] MEDS: IBUPROFEN 600 MG TABLET PO (07:14)
--- NOTE | 2021-10-27 08:10 | P.DS_ITS ---
Discharge Providers Provider Date of admission: 10/25/21 13:05 Discharge Date: 10/27/21 Primary care physician: Jose R Solano MD Consults: 10/26/21 21:34 Consult to Mail Distribution Clerk Routine Comment: Discharge provider: Celina Frausto DO Summary Hospital Course Date Patient Seen: 10/27/21 Diagnoses: 39 weeks of Spontaneous vaginal delivery GBS positive Epidural analgesia Hospital Course: 26-year-old G3 now P3 after uncomplicated spontaneous vaginal delivery at 39 weeks and 2 days. She came in for elective induction due to distance from the hospital, history of rapid labor and GBS positivity. She received Pitocin per protocol as well as 2 doses of penicillin prior to delivery. She received an epidural and went on to deliver a vigorous female infant. There were no lacerations. course has been uncomplicated. She is ambulating, voiding and passing flatus. Vaginal bleeding is moderate in decreasing. Pain controlled with Tylenol and ibuprofen. She is working on though infant may have a tongue tie. She is pumping and comfortable with the feeding plan going home. Advised patient to call for fevers, severe pain or bleeding through more than a pad an hour. Follow-up in clinic in 6 weeks. Peripartum Data Delivery Method: Natural Vaginal Laceration Description: None complications: none [place] 1: Gender: Female Disposition of : home Discharge Diagnosis (1) Spontaneous vaginal delivery: Status: Acute (2) 39 weeks gestation of : Status: Acute Time Spent with Patient Time attestation: Total time spent providing and/or coordinating discharge services: Time spent: Less than 30 minutes Objective Labs Result Diagrams: 10/25/21 14:30 Exam Vital Signs (past 8 hours): Temperature 97.7? blood pressure 115/81 heart rate 91 respirations 16 Narrative Exam Narrative: General: Sitting up eating breakfast, no distress. HEENT: NCAT, EOMI, moist oral mucosa CV: Regular rate and rhythm, no murmurs, rubs or gallops Lungs: CTAB, no wheezes, rales, or rhonchi Extremities: Warm, no edema Discharge Plan Discharge Plan Patient Disposition: Home Discharge orders & Medications Prescriptions: New docusate sodium 100 mg Capsule 100 mg PO DAILY Qty: 30 0RF ibuprofen 600 mg Tablet 600 mg PO Q6HR PRN (Reason: Pain, Mild (1-3)) Qty: 30 0RF Continued sertraline 50 mg tablet 50 mg PO DAILY Qty: 30 1RF (DME) Double Electric Breast Pump and supplies See Rx Instructions .ROUTE .MEDSUPPLY Qty: 1 0RF Rx Instructions: Use daily as directed prenat.vits,lisa,[id number] Tablet 1 tab PO DAILY 0RF docusate sodium 100 mg capsule 100 mg PO DAILY 0RF Follow up/Referrals: Jose R Solano MD [Primary Care Provider] - Celina Frausto DO [Physician] - 12/04/21 11:30 am Diet/Activity/Treatments Diet: Diet as Tolerated Skin/Wound/Dressing Care Report to your healthcare provider any signs of infection, such as:: chills, fever, night sweats, increased pain, unusual drainage and unusual redness Visit Report/Discharge Packet Visit Report Forms: Patient Portal/API, Stroke Signs & Symptoms Discharge Data Primary Care Provider: Jose R Solano
[2021-10-27 08:51] VITALS: BP 115/81; PULSE 91; RESP 16; TEMP 36.9
== END 2021-10-27 10:58 | disposition home or self-care (01) | DRG 560 ==
PROVIDERS: Admitting Provider Family Medicine; PCP Internal Medicine; Referring Provider Family Medicine; Visit Provider Family Medicine
DX: O99.824 Streptococcus B carrier state complicating childbirth (principal); Z3A.39 39 weeks gestation of pregnancy; Z37.0 Single live birth; O76 Abnormality in fetal heart rate and rhythm complicating labor and delivery; O99.344 Other mental disorders complicating childbirth; F41.9 Anxiety disorder, unspecified; Z20.822 Contact with and (suspected) exposure to COVID-19
CPT/HCPCS: 01967; 59050; 59409; 59410; 85025; 86850; 86900; 86901; 87635; C9803; G0379; J2405; J2540; J2590

== ENCOUNTER → 2022-02-28 15:05 | Outpatient (CLI) | payer OTHER, MEDICAID, SELFPAY ==
[2022-03-01 11:42] LABS: Varicella IgG Antibody 363 index (Immune >165)
== END ==
PROVIDERS: PCP Family Medicine; Referring Provider Family Medicine; Visit Provider Family Medicine
DX: Z01.84 Encounter for antibody response examination (principal)
CPT/HCPCS: 36415; 86787

== ENCOUNTER 2023-02-26 15:22 | Emergency (ER) | payer OTHER, SELFPAY ==
[2023-02-26 15:34] VITALS: BP 140/79; PULSE 117; RESP 16; TEMP 38.5; O2SAT 100; BMI 34.9
[2023-02-26] MEDS: IBUPROFEN 400 MG TABLET 800 MG PO (15:49)
[2023-02-26] MEDS: ACETAMINOPHEN 325 MG TABLET 975 MG PO (15:49)
--- NOTE | 2023-02-26 15:52 | ED_ITS ---
HPI - URI/Sore Throat <TAMIR Varela - Last Filed: 02/26/23 16:16> General Chief Complaint: Upper Respiratory Symptoms Stated Complaint: fever, sore throat, congestion, doesn't feel well Time Seen by Provider: 02/26/23 15:46 Source: patient Mode of arrival: Ambulatory History of Present Illness HPI Narrative: This is a 27-year-old female presents to the emergency department complaining of rhinorrhea, sore throat, ear pain and fever which started yesterday. She is vaccinated for COVID, states it the walk-in clinic tested her for strep yesterday and it was negative. She last had ibuprofen at 08:00 o'clock this morning. States that she has a fever right now and feels bad but has not been vomiting, denies nausea, denies dysuria, denies abdominal pain or other symptoms other than her upper respiratory system. She does not have a cough. Related Data Home Medications Medication Instructions Recorded Confirmed prenat.vits,lisa,[id number] 1 tab PO DAILY 03/20/21 10/26/21 Previous Rx's Medication Instructions Recorded Double Electric Breast Pump and #1 ea 08/30/21 supplies ibuprofen 600 mg tablet 600 mg PO Q6HR PRN Pain, Mild 10/27/21 (1-3) #30 tabs sertraline 50 mg tablet See Rx Instructions .Route 12/24/22 .COMPLEX #45 tabs cetirizine 10 mg tablet 10 mg PO BEDTIME PRN congestion 02/26/23 #30 tabs Allergies Allergy/AdvReac Type Severity Reaction Status Date / Time lavender (Lavandula AdvReac Intermediate Hives Verified 05/16/22 16:21 angustifolia) No Known Allergies Allergy Uncoded 05/16/22 16:21 Review of Systems <TAMIR Varela - Last Filed: 02/26/23 16:16> Review of Systems ROS Unobtainable: All systems reviewed & are unremarkable except as noted in HPI and below Patient History <TAMIR Varela - Last Filed: 02/26/23 16:16> Medical History Anxiety COVID-19 affecting in second trimester Depression Finger fracture Obesity Spontaneous vaginal delivery (~10/25/21) (spontaneous vaginal delivery) (~02/05/17) (spontaneous vaginal delivery) (~03/06/19) Family History Father History of prediabetes Altered cardiac tissue perfusion Mother Anemia Hemorrhoids Grandfather Family estrangement Grandmother Cancer Colon cancer Grandfather Congestive heart failure Arthritis Joint pain Grandmother Hypertension Brother Hiatal hernia Brother No problems noted. 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 ) current occupational exposures/hazards: Yes flor/restoration: Rastafari special flor needs: No Smoking Status: Never smoker second hand exposure: No alcohol intake: former (Pre- : rare social/on occasion ) substance use type: does not use Smoking Status: Never smoker alcohol intake frequency: 0-2 drinks per day Substance Use Type: does not use Exam <TAMIR Varela - Last Filed: 02/26/23 16:16> Narrative Exam Narrative: HEENT: Congestion, rhinorrhea, posterior pharynx with mild exudate, no tonsillar adenopathy, right TM is erythematous, bulging and suppurative, left TM is bulging without erythema, normal landmarks, no anterior cervical lymphadenopathy Initial Vital Signs Initial Vital Signs: Vital Signs Temperature 101.3 F H 02/26/23 15:34 Pulse Rate 117 H 02/26/23 15:34 Respiratory Rate 16 02/26/23 15:34 Blood Pressure 140/79 02/26/23 15:34 Pulse Oximetry 100 02/26/23 15:34 Oxygen Delivery Method Room Air 02/26/23 15:34 <Jose R Henson MD - Last Filed: 03/24/23 21:41> Initial Vital Signs Initial Vital Signs: Vital Signs Temperature 101.3 F H 02/26/23 15:34 Pulse Rate 117 H 02/26/23 15:34 Respiratory Rate 16 02/26/23 15:34 Blood Pressure 140/79 02/26/23 15:34 Pulse Oximetry 100 02/26/23 15:34 Oxygen Delivery Method Room Air 02/26/23 15:34 Course <TAMIR Varela - Last Filed: 02/26/23 16:16> Orders Ordered: Discontinued Medications Acetaminophen (Acetaminophen 325 Mg Tablet) 975 mg PO NOW ONE Stop: 02/26/23 15:45 Last Admin: 02/26/23 15:49 Dose: 975 mg Documented By: JOSE ARMANDO Ibuprofen (Ibuprofen 400 Mg Tablet) 800 mg PO NOW ONE Stop: 02/26/23 15:45 Last Admin: 02/26/23 15:49 Dose: 800 mg Documented By: JOSE ARMANDO Vital Signs Vital signs: Vital Signs - 8 hr 02/26/23 15:34 02/26/23 15:53 Temperature 101.3 F H Pulse Rate 117 H 110 H Respiratory Rate 16 20 Blood Pressure 140/79 Pulse Oximetry 100 99 Oxygen Delivery Method Room Air Room Air <Jose R Henson MD - Last Filed: 03/24/23 21:41> Orders Ordered: Discontinued Medications Acetaminophen (Acetaminophen 325 Mg Tablet) 975 mg PO NOW ONE Stop: 02/26/23 15:45 Last Admin: 02/26/23 15:49 Dose: 975 mg Documented By: JOSE ARMANDO Ibuprofen (Ibuprofen 400 Mg Tablet) 800 mg PO NOW ONE Stop: 02/26/23 15:45 Last Admin: 02/26/23 15:49 Dose: 800 mg Documented By: JOSE ARMANDO Vital Signs Vital signs: Vital Signs - 8 hr 02/26/23 15:34 02/26/23 15:53 Temperature 101.3 F H Pulse Rate 117 H 110 H Respiratory Rate 16 20 Blood Pressure 140/79 Pulse Oximetry 100 99 Oxygen Delivery Method Room Air Room Air MDM - URI/Sore Throat <TAMIR Varela - Last Filed: 02/26/23 16:16> Lab Data Labs: Lab Results 02/26/23 02/26/23 Range/Units 15:45 15:45 Chlamy pneumoniae PCR Not detected (Not Detect) Adenovirus (PCR) Detected H (Not Detect) B. pertussis DNA (PCR) Not detected (Not Detecte) B.parapertussis DNA PCR Not detected (Not Detecte) Coronavirus OC43 (PCR) Not detected (Not Detect) Coronavirus HKU1 (PCR) Not detected (Not Detect) Coronavirus 229E (PCR) Not detected (Not Detect) SARS-CoV-2 (PCR) Not detected (Not Detecte) Coronavirus NL63 (PCR) Not detected (Not Detect) Human Metapneumovir PCR Not detected (Not Detect) Influenza Type A (PCR) Not detected (Not Detect) Influenza Type B (PCR) Not detected (Not Detect) M. pneumoniae (PCR) Not detected (Not Detect) Parainfluenza 1 (PCR) Not detected (Not Detect) Parainfluenza 2 (PCR) Not detected (Not Detect) Parainfluenza 3 (PCR) Not detected (Not Detect) Parainfluenza 4 (PCR) Not detected (Not Detect) RSV (PCR) Not detected (Not Detect) Entero/Rhino (PCR) Not detected (Not Detect) Group A Strep (PCR) Positive H (Negative) MDM Narrative Medical decision making narrative: Chief Complaint: Throat pain, ear pain, congestion Multiple etiologies for patient's complaint considered including, but not limited to: I have independently reviewed the patient's vital signs and nursing notes as well as prior records if available. Plan: Rapid strep, COVID respiratory panel including influenza and RSV Rapid strep is positive for strep, patient was prescribed 10 days of Augmentin, she also has acute otitis media of the right ear with erythema, and it is suppurative and bulging TM. Patient is encouraged to stay hydrated, she is given a prescription of cetirizine, Augmentin times 10 days, encouraged to stay hydrated take ibuprofen and Tylenol as needed for fever. She was tolerating p.o. while here in staying hydrated, she was tachycardic prior to discharge due to her fever but was just dosed with Tylenol and ibuprofen. Social considerations that may affect disposition: none Questions are addressed and there is agreement with the plan and for follow-up. I consulted with the ED attending physician Dr. Henson as needed for higher level of care considerations and they were available for discussion and recommendations regarding plan of care and diagnostic testing. Patient is appropriate for outpatient management. #66: Appropriate Testing for Patients with Pharyngitis [x ] The patient has acute pharyngitis/tonsillitis. The patient was prescribed antibiotics today and a strep test or culture was performed today or in the last 3 days. [ ] The patient has acute pharyngitis/tonsillitis and was prescribed antibiotics today. A strep test or culture was not performed because the patient meets one of the following: [ x] Patient received a competing diagnosis. The patient?s competing diagnosis is acute otitis media [ ] Patient is currently on antibiotics or has been in the last 30 days. [ ] Patient had a competing comorbid condition within the last 12 months. The patient?s comorbid condition is [] (e.g., tuberculosis, neutropenia, cystic fibrosis, chronic bronchitis, pulmonary edema, respiratory failure, rheumatoid lung disease) <Jose R Henson MD - Last Filed: 03/24/23 21:41> Lab Data Labs: Lab Results 02/26/23 02/26/23 Range/Units 15:45 15:45 Chlamy pneumoniae PCR Not detected (Not Detect) Adenovirus (PCR) Detected H (Not Detect) B. pertussis DNA (PCR) Not detected (Not Detecte) B.parapertussis DNA PCR Not detected (Not Detecte) Coronavirus OC43 (PCR) Not detected (Not Detect) Coronavirus HKU1 (PCR) Not detected (Not Detect) Coronavirus 229E (PCR) Not detected (Not Detect) SARS-CoV-2 (PCR) Not detected (Not Detecte) Coronavirus NL63 (PCR) Not detected (Not Detect) Human Metapneumovir PCR Not detected (Not Detect) Influenza Type A (PCR) Not detected (Not Detect) Influenza Type B (PCR) Not detected (Not Detect) M. pneumoniae (PCR) Not detected (Not Detect) Parainfluenza 1 (PCR) Not detected (Not Detect) Parainfluenza 2 (PCR) Not detected (Not Detect) Parainfluenza 3 (PCR) Not detected (Not Detect) Parainfluenza 4 (PCR) Not detected (Not Detect) RSV (PCR) Not detected (Not Detect) Entero/Rhino (PCR) Not detected (Not Detect) Group A Strep (PCR) Positive H (Negative) Discharge Plan Departure Patient Disposition: Home Clinical Impression: Pharyngitis, Acute otitis media, Adenoviral infection Instructions: Strep Throat, DI for Viral Upper Respiratory Infection -- Adult, DI for Middle Ear Infection-Adult Activity Restrictions/Additional Instructions: *You have been diagnosed with likely a viral illness, we will call you if it is COVID, influenza or RSV. The right ear appears infected, please start taking Zyrtec to help decongest the ears and Sudafed if you need it, stay hydrated, Tylenol 1000 mg every 6 hours, do not take more than 4 times in 24 hours, ibuprofen 800 mg every 8 hours with food and water. Please take these antibiotics for the next 7 days, you should start feeling better soon when your fever comes down, sorry for your symptoms, follow-up with primary care when you can establishing new provider. Best of luck. *What to do: *Please continue to take your regular medications as directed. [x ] New medication prescriptions sent to your pharmacy: [ [facility]] [ ] New medication written as a paper prescription [ ] No new medications given *Please call and schedule follow up with your primary care provider in 2-3 days, at least for an update. Let them know you were seen in the Emergency Department for the above problem. We will electronically transmit a record of today's note if your PCP or specialist is in our system. *If you do not have a primary care provider please contact [phone] to establish care with one of the [facility] primary care providers. *Return to the Emergency Department for worsening symptoms, inability to keep liquids down, fever greater than 101F, chills, or other concerning symptom. Prescriptions: New cetirizine 10 mg tablet 10 mg PO BEDTIME PRN (Reason: congestion) Qty: 30 0RF No Action (DME) Double Electric Breast Pump and supplies See Rx Instructions .ROUTE .MEDSUPPLY Qty: 1 0RF Rx Instructions: Use daily as directed sertraline 50 mg tablet See Rx Instructions .ROUTE .COMPLEX Qty: 45 5RF Dose Instruction: TAKE 1 AND 1/2 TABLETS (75MG) BY MOUTH ONCE DAILY Rx Instructions: TAKE 1 AND 1/2 TABLETS (75MG) BY MOUTH ONCE DAILY prenat.vits,lisa,[id number] Tablet 1 tab PO DAILY ibuprofen 600 mg Tablet 600 mg PO Q6HR PRN (Reason: Pain, Mild (1-3)) Qty: 30 0RF Referrals: Celina Frausto DO [Primary Care Provider] - Stand Alone Forms: Patient Portal/API <Jose R Henson MD - Last Filed: 03/24/23 21:41> Cosign ED Attending Cosignature Attestation: I was immediately available in the department for consultation. This docu mentation has been reviewed and I agree with assessment and plan. Supervised by Jose R Henson MD
[2023-02-26 15:53] VITALS: PULSE 110; RESP 20; O2SAT 99
[2023-02-26 15:54] LABS: Strep Grp A by PCR Rapid Positive (Negative)
[2023-02-26 16:41] LABS: Adenovirus Detected (Not Detect); B. parapertussis Not Detected (Not Detecte); Bordetella pertussis Not Detected (Not Detecte); Chlamydophila pneumoniae Not Detected (Not Detect); Coronavirus 229E Not Detected (Not Detect); Coronavirus HKU1 Not Detected (Not Detect); Coronavirus NL 63 Not Detected (Not Detect); Coronavirus OC43 Not Detected (Not Detect); Human Metapneumovirus Not Detected (Not Detect); Human Rhinovirus/Enterovirus Not Detected (Not Detect); Influenza A Not Detected (Not Detect); Influenza B Not Detected (Not Detect); Mycoplasma pneumoniae Not Detected (Not Detect); Parainfluenza Virus 1 Not Detected (Not Detect); Parainfluenza Virus 2 Not Detected (Not Detect); Parainfluenza Virus 3 Not Detected (Not Detect); Parainfluenza Virus 4 Not Detected (Not Detect); Respiratory Syncytial Virus Not Detected (Not Detect); SARS- CoV-2 Not Detected (Not Detecte)
== END 2023-02-26 16:12 | disposition home or self-care (01) ==
PROVIDERS: Emergency Provider Nurse Practitioner Critical Care Medicine; PCP Family Medicine
DX: J02.0 Streptococcal pharyngitis (principal); H66.001 Acute suppurative otitis media without spontaneous rupture of ear drum, right ear; B34.0 Adenovirus infection, unspecified; Z20.822 Contact with and (suspected) exposure to COVID-19
CPT/HCPCS: 87633; 87651; 99282; 99283

== ENCOUNTER → 2023-05-02 11:38 | Outpatient (CLI) | payer OTHER, SELFPAY ==
--- NOTE | 2023-05-02 11:40 | DI.US.S_ITS ---
PROCEDURE: US PELVIC COMPLETE INDICATIONS: DYSMENORRHEA TECHNIQUE: Real-time scanning was performed of the pelvic organs, with image documentation. Additional endovaginal scanning was necessary due to incomplete visualization of the adnexal and endometrial structures by transabdominal scanning. COMPARISON: None. FINDINGS: Uterus: Uterus is anteverted and normal in size at 6.1 x 3.1 x 4.4 cm. The myometrium is homogeneous. The endometrium measures 2.7 mm combined thickness. Possible submucosal fibroid measuring 5 mm at the level of the fundus Ovaries: The right ovary measures 1.4 x 3.1 x 1.7 cm, with a calculated ovarian volume of 3.6 cc. The left ovary measures 2.1 x 3.2 x 2.0 cm, with a calculated ovarian volume of 7.2 cc. The ovaries have a normal sonographic appearance. Less than 12 follicles can be seen in each ovary. No adnexal masses are seen. Other: No pathologic free abdominal or pelvic fluid. IMPRESSION: Possible submucosal fibroid measuring 6 mm. We strive to produce accurate, complete, and clear reports of imaging services. To assist us in improving patient care, this report was composed using standard report templates and voice recognition software. Therefore, it may contain abnormal punctuation, insertions and/or omissions. Occasional wrong-word or sound-alike substitutions may occur. Though we review the report and make efforts to correct it, we do recommend that the report be read carefully in proper context to recognize any text inaccuracies. Dictated by: Derrell WORLEY Interpreted: Cliff Brandon MD on 05/02/2023 at 12:36 Transcribed by: MODE on 05/02/2023 at 12:38 Approved by: Gus Brandon M.D. on 05/05/2023 at 14:51
[2023-05-02 12:56] LABS: Add Manual Diff / Slide Review NO; Basophils Absolute Auto 100 /uL (0-100); Basophils Percent Auto 0.8 % (0-2); Eosinophils Absolute Auto 300 /uL (0-450); Eosinophils Percent Auto 3.2 % (2-4); Lymphocytes Absolute Auto 2100 /uL (1100-4500); Lymphocytes Percent Auto 25.7 % (25-40); Mean Corpuscular HGB Conc 34.1 % (30-36); Mean Corpuscular Hemoglobin 30.2 PG (26-34); Mean Corpuscular Volume 88.6 fL (80-100); Monocytes Absolute Auto 500 /uL (0-900); Monocytes Percent Auto 5.6 % (3-14); Neutrophils Absolute Auto 5200 /uL (1500-7000); Neutrophils Percent Auto 64.7 % (50-75); Platelet Count 209 X10^3/uL (150-400); Red Blood Cell Count 4.63 X10^6/uL (4.0-5.2); Red Cell Distribution Width 12.6 % (11.6-14.8)
[2023-05-02 13:14] LABS: Hemoglobin A1C% w Est Avg Glu 5.3 % (4.0-6.0)
[2023-05-02 14:00] LABS: Prolactin 10.5 ng/mL (3.0-18.6)
[2023-05-02 14:14] LABS: TSH w/ Reflex to FT4 1.64 uIU/mL (0.47-4.68)
[2023-05-02 16:27] LABS: Follicle Stimulating Hormone 6.92 mIU/mL
[2023-05-07 21:21] LABS: Estrogen 152 pg/mL (.)
== END ==
LOC: US 11:39
PROVIDERS: PCP Family Medicine; Referring Provider Family Medicine; Visit Provider Family Medicine
DX: N94.6 Dysmenorrhea, unspecified (principal); E28.2 Polycystic ovarian syndrome; F32.9 Major depressive disorder, single episode, unspecified
CPT/HCPCS: 36415; 76830; 76856; 82672; 83001; 83036; 84144; 84146; 84443; 85025